=== PATIENT | male | born 1945 | race Caucasian/White ===

== ENCOUNTER → 2017-10-25 13:06 | Outpatient (CLI) | payer OTHER, SELFPAY | PROVIDERS: PCP Internal Medicine; Visit Provider Internal Medicine | DX: L97.812 Non-pressure chronic ulcer of other part of right lower leg with fat layer exposed (principal) | CPT/HCPCS: 11042 ==

== ENCOUNTER → 2017-11-01 13:29 | Outpatient (CLI) | payer OTHER, SELFPAY | PROVIDERS: PCP Internal Medicine; Visit Provider Internal Medicine | DX: L97.812 Non-pressure chronic ulcer of other part of right lower leg with fat layer exposed (principal) | CPT/HCPCS: 11042 ==

== ENCOUNTER → 2017-11-19 13:37 | Outpatient (CLI) | payer OTHER, SELFPAY ==
--- NOTE | 2017-11-19 | OV.WND_ITS ---
Progress Note Details Patient Name: Inderjit Carl Patient Number: [id number] PatientPatientDate: 11/19/2017 Clinician: Leann Dinero Physician / Corporate Treasurer: Blaine Trent SUBJECTIVE Chief Complaint This information was obtained from the patient Trauma wound to right calf. Allergies NKDA HPI This information was obtained from the patient 11/19/17. Seen by Dr. Trent. The patient reports continued drainage associated with the chronic right lower leg nonpressure ulcer over the past few days however does not report pain or increased swelling in the leg. He's also no longer applying topical gentamicin to the site and has been off of oral antibiotics for over a month. The nurse report some blue/ green drainage on his dressing today. 11/01/17. Seen by Dr. Trent. The patient does not report pain nor increased drainage associated with the chronic right lower leg nonpressure ulcer since his last visit. 10/25/17. Seen by Dr. Trent. The patient does not report pain nor increased drainage associated with the chronic right lower leg nonpressure ulcer since his last visit. His is applying topical Neosporin with dressing changes. 10/18/17. Seen by Dr. Trent. The patient does not report pain nor increased drainage associated with the chronic right lower leg nonpressure ulcer since his last visit. 10/11/17. Seen by Dr. Trent. The patient does not report pain nor increased drainage associated with the chronic right lower leg nonpressure ulcer since his last visit. 10/04/17. Seen by Dr. Trent. The patient does not report pain nor increased drainage associated with the chronic right lower leg nonpressure ulcer since his last visit. 09/27/17. Seen by Dr. Trent. The patient does not report pain nor increased drainage associated with the chronic right lower leg nonpressure ulcer since his last visit. 09/20/17. Seen by Dr. Trent. The patient does not report pain nor increased drainage associated with the chronic right lower leg nonpressure ulcer since his last visit. 09/13/17. Seen by Dr. Trent. The staff report increased drainage which appears blue/green on the dressings today. The patient does not report increased pain however associated with the chronic right lower leg nonpressure ulcers since his last visit. 08/31/17. Seen by MATTEO Kincaid. The patient does not pain or increased drainage from his chronic right lower leg ulcer nonpressure ulcer since his last visit. 08/30/17. Seen by Dr. Trent. The patient does not report pain nor increased drainage associated with the chronic right lower leg nonpressure ulcer since his last visit. 08/23/17. Seen by Dane Lauren PA-C. The patient reports stable drainage from his wound of the right lower leg. 08/16/17. Seen by Dane Lauren PA-C. The patient does not report difficulties with his DEMARCO dressing or increased pain from his right lower leg ulcer. 08/09/17. Seen by Dane Lauren PA-C. The patient reports no difficulties with his DEMARCO dressing and drainage from his ulcer is decreased since he began taking Bactrim. 08/02/17. Seen by Dane Lauren PA-C. The patient reports he continues on Bactrim for his ulcer infection of the right lower leg. His wound culture resulted with no growth. Drainage from the ulcer is reportedly decreased. The patient expresses concern over the cost of twice weekly visits. 07/31/17. Seen by Dane Lauren PA-C. The patient comes in today as his (a retired RN) was concerned that his ulcer had deteriorated when she changed his dressing today. He reports no increase in drainage but an increase in pain from the ulcer. He continues on Bactrim for his ulcer infection and NPWT is on hold. 07/26/17. Seen by Dr. Trent. The patient does not report pain nor increased drainage associated with the chronic right lower leg nonpressure ulcer since his last visit. His NPWT has been held and he continues on Bactrim for the recent Stenotrophomonas positive wound culture. 07/23/17. Seen by Dane Lauren PA-C. The patient reports no increase in drainage from his right lower leg ulcer. His culture grew S. Maltophilia sensitive to Bactrim. 07/19/17. Seen by Dane Lauren PA-C. The patient reports increased drainage from his right lower leg ulcer since his last evaluation and denies fever or chills. 07/12/17. Seen by Dane Lauren PA-C. The patient reports no increase in pain or drainage from his right lower leg ulcer since his last evaluation. 07/09/17. Seen by Dr. Trent. The patient does not report pain nor increased drainage associated with the chronic right lower leg nonpressure ulcers since his last visit. He is tolerating negative pressure wound therapy without difficulty completed his course of Bactrim that was treated for chronic wound infection last night. 07/05/17. Seen by Dane Lauren PA-C. The patient reports his ulcer continues to be mostly painless and he continues taking his Bactrim for his ulcer infection. 07/02/17. Seen by Dr. Trent. The patient does not report pain associated with the chronic right lower leg nonpressure ulcer since his last visit and he's tolerating NPWT without difficulty. His wound culture from the last visit grew Stenotrophomonas resistant to levofloxacin which he's now taking however he does not report fevers or feeling unwell. 06/28/17. Seen by Dr. Trent. The patient does not report pain associated with the chronic right lower leg nonpressure ulcer however the staff report significant drainage and the wound VAC canister. He continues on levofloxacin for refractory cellulitis associated with the ulcer and does not report adverse side effects, fevers, feeling unwell. 06/25/17. Seen by Dr. Trent. The patient does not report significant pain and states the drainage associated with the right posterior lower leg ulcer continues to decrease. 06/21/17. Seen by Dr. Trent. The patient does not report significant pain and states the drainage associated with the right posterior lower leg ulcer has decreased considerably. 06/18/17. Seen by Dr. Trent. The patient feels the right lower leg swelling and drainage has decreased considerably since he started taking levofloxacin and was changed from ampicillin to Augmentin on Sunday. These changes were made due to progressive cellulitis associated with the chronic right lower leg non-pressure ulcer. Of note, his wound culture from Sunday grew Enterbacter resistant to Augmentin, and as such ampicillin, however sensitive to levofloxacin. He does not report pain in the leg, fevers, or feeling unwell in general. 06/15/17. Seen by Dr. Trent. The patient reports some increased swelling associated with her right lower leg nonpressure ulcer over the past 24 hours. He had a SNAP negative pressure dressing placed 2 days ago which subsequently leaked and was replaced in clinic yesterday. He is not report fevers or feeling unwell but does state that there is some discomfort in the leg. He is on ampicillin that is treating the recent enterococcus positive wound culture. 06/13/17. Seen by Dr. Trent. The patient does not report pain nor increased drainage associated with the chronic right lower leg nonpressure ulcer since his last visit. He continues on ampicillin for the recent positive Enterococcus wound culture and does not report adverse side effects, fevers, or feeling unwell in general. 06/07/17. Seen by Dr. Trent. The patient does not report pain nor increased drainage associated with the chronic right lower leg nonpressure ulcer since his last visit. His recent wound culture grew enterococcus and Dr. Garcia, surgeon, placed him on amoxicillin yesterday. The patient does not report adverse side effects or fevers. 05/31/17. Seen by Dr. Trent. The patient was seen by Dr. Garcia yesterday and underwent sharp debridement of the right lower leg nonpressure ulcer resolved from an infected hematoma. He's not report significant pain but does have at least moderate drainage associated with the site. He is now off of antibiotics and does not report any other acute issues. 05/21/17. Seen by Dr. Trent. The patient does not report increased pain associated with the right posterior lower leg hematoma and he had the drain that was placed during surgical evacuation removed last Sunday. He does report increased drainage however from the drain site but no fevers and he is not currently on antibiotics. Of note, the nurse is concerned about increased swelling and warmth of the calf as well as a new area of possible soft tissue necrosis at the distal posterior lower leg. 05/14/17. Seen by Dr. Trent. The patient underwent evacuation of the large right posterior lower leg hematoma by Dr. Garcia on Sunday. He has a drain in place and states that the drainage has decreased to less than 20 mL in the last 24 hours. The intraoperative wound culture also was unremarkable and the patient states that the pain in general is much improved. 05/10/17. Seen by Dr. Trent. The patient was seen by Dr. Garcia yesterday and he is scheduled for incision and drainage of the large right posterior lower leg hematoma. He does not report significant drainage or pain associated with the hematoma nor fever or feeling unwell in general since his last visit and he is now off of antibiotics. 05/01/17. Seen by Dane Lauren PA-C. The patient reports his right lower leg swelling and pain have been decreasing. He has not yet been called by [facility] regarding his right leg hematoma. 04/26/17. Seen by Dr. Trent. The patient feels the posterior right lower leg swelling and pain have improved over the past week. His wound culture grew a coag negative staph species without sensitivities being reported and he has been on Bactrim without reporting adverse side effects since last visit. 04/19/17. Seen by Dr. Trent. The patient returns to our clinic with a chronic nonpressure ulcer over the posterior aspect of the right lower leg. He reportedly hit the lower leg on a wall at home about 3 weeks ago experienced some considerable swelling and pain. He takes a full dose aspirin and appears may have experienced hematoma at the base of the calf. The area subsequently became red and warm and his been started on antibiotics by his primary care provider and a wound culture was supposedly performed yesterday. 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 11/04/[address] Trent. The patient does not report significant drainage from the chronic right lower leg venous ulcer and he continues to tolerate his compression wraps without difficulty. 10/28/[address] Trent. The patient does not report any issues regarding his compression wraps that are treating his bilateral lower extremity chronic venous hypertension and associated venous ulcers. 10/21/[address] Trent. The patient does not report pain or significant drainage associated with his chronic bilateral lower leg venous ulcers. He also feels the compression wraps that are treating chronic venous hypertension were effective at reducing his bilateral leg edema. 10/14/[address] Trent. The patient does not report significant drainage or pain associated with his chronic bilateral lower leg venous ulcers. 10/04/15 Seen by Dane Lauren PA-C. The patient presents with a new wound today, which is in the area of his hemosiderin staining and began once he bumped his leg on a piece of furniture. His chronic venous ulcers have demonstrated stable drainage since his last evaluation. 09/23/[address] Trent. The patient continues to report modest blue/green drainage from the left lateral venous ulcers along with some intermittent burning pain. He's wearing compression stockings as recommended. 09/02/[address] Trent. The patient reports minimal drainage from his bilateral venous lower leg ulcers and he does not report pain associated with the ulcers today. His wound culture from the last visit grew coag negative Staph and he's currently not on oral antibiotics. 08/27/[address] Trent. The patient reports some mild intermittent pain associated with the left posterior venous ulcer and the staff note recurrence of bright green/ yellow drainage on the left lower leg venous ulcer dressings. The patient's not on antibiotics and he does not report fevers or feeling unwell in general. 08/20/[address] Trent. The patient continues to report some pain and moderate bright yellow drainage associated with the chronic left lower leg venous ulcers however his right lower leg venous ulcer is asymptomatic. 08/13/[address] Trent. The staff feel there's some increased drainage from the left lower leg venous ulcers and the patient reports some continued mild discomfort at the left posterior ulcer site. He continues to apply gentamicin ointment to the ulcer and apply compression wraps to both lower legs at home. He does not report fever or feeling unwell. 08/04/[address] Trent. The patient reports only minimal drainage associated with the bilateral lower leg venous ulcers and he's been off of IV cefepime for over one week. He also feels the pain associated with the ulcers has nearly resolved. Of note, his blood pressure in clinic today is 197/112 and he states he has significant white coat syndrome. He 's asymptomatic and states it BP is within normal limits while checking it regularly at home. 07/28/[address] Trent. The patient reports a significant decrease in pain and drainage associated with his chronic bilateral lower leg venous ulcers since completing his course of IV cefepime for resistant Pseudomonas infection of the ulcers. 07/21/[address] Trent. The patient feels the drainage from his bilateral lower leg venous ulcers has decreased considerably since starting on IV cefepime for recurrent, resistant Pseudomonas positive cultures. The associated pain has decreased also and he's wearing compression stockings for chronic venous hypertension without reporting any problems. 07/14/[address] Trent. The patient's new to our clinic and presents with chronic bilateral lower extremity ulcers presumed to be of venous origin. They first appeared in September of 2014 and have progressed while being complicated by infection, most notably very resistant Pseudomonas cultured within the past 2 weeks along with Enterococcus. He's been treated with ciprofloxacin within the past month however the Pseudomonas is now resistant to fluoroquinolones as well as all other oral antibiotics. He reports intermittent pain at the ulcer sites along with considerable drainage but does not report fever or feeling unwell. His legs have been wrapped as well to manage the edema. He does no report rest pain or claudication and does not report a history of diabetes. Past Medical History This information was obtained from the patient Patient has a medical history of: ACS (2008; s/p MARY x1 ) Spinal stenosis (2008) HTN Shingles (2014) High cholesterol Osteoarthritis Chronic venous hypertension (bilateral, w/ ulcer and inflammation; complicated by resistant Pseudomonas and Enterococcus) PAD Complaints and Symptoms This information was obtained from the patient Patient complains of: General Notes: I have reviewed and concur with the Review of Systems and Past Family Social History documents completed by the clinician, I have reviewed and concur with the Wound Assessment document completed by the clinician Cardiovascular (Central/Peripheral): Lower extremity (leg) swelling Ear/Nose/Mouth/Throat: Hearing Loss / Aid Hematologic/Lymphatic: Bleeding Tendency Integumentary (Hair/Skin/Nails): Open Sore, Prone to Skin Tears Musculoskeletal: Assistive Devices Prior Wound History: Drainage, Erythema Patient denies complaints or symptoms related to: Cardiovascular (Central): Irregular heart beat, Orthopnea Cardiovascular (Central/Peripheral): Intermittent Claudication, Lower extremity (leg) resting pain Constitutional Symptoms (General Health): Chills, Fever, Marked Weight Change Gastrointestinal (GI): Nausea / Vomiting, Stomach/abdominal pain Hematologic/Lymphatic: Bleeding / Clotting Disorders Musculoskeletal: Muscle Weakness Neurological: Loss of Protective Sensation Prior Wound History: Bleeding, Malodor, Pain Psychiatric: Memory Loss Respiratory: Oxygen Use, Shortness of Breath OBJECTIVE Constitutional BP elevated; Afebrile; Alert and in no distress. Well developed. Alert. Clean appearing.. Height/Length: 70 in (177.8 cm), Weight: 200.6 lbs (91.18 kgs), BMI: 28.8, Temperature: 98.1 ?F (36.72 ?C), Pulse: 82 bpm, Respiratory Rate: 18 breaths/min, Blood Pressure: 161/97 mmHg, Pulse Oximetry: 97 %. Ears, Nose, Mouth, and Throat: Uses hearing aids. Respiratory: No respiratory distress. Even respirations and without use of accessory muscles.. Cardiovascular: 1+ right lower extremity edema. Integumentary (Hair, Skin) No periwound erythema, warmth, or significant drainage. No periwound rashes appreciated or noted otherwise.. Refer to appropriate clinician wound documentation for this visit; right lower leg ulcer extends to subcut with base partially covered with pink granulation, remainder fibrin and slough; blue/green drainage overlying ulcer and surrounding area. Wound #7 Right, Posterior Calf is an acute Full Thickness Trauma Wound and has received a status of Not Healed. Subsequent wound encounter measurements are 0.2cm length x 0.1cm width x 0.1cm depth, with an area of 0.02 sq cm and a volume of 0.002 cubic cm. Hypergranulation was noted. No tunneling has been noted. No sinus tract has been noted. No undermining has been noted. There is a scant amount of serous drainage noted which has no odor. The patient reports a wound pain of level 0/10. The wound margin is attached. Wound bed has Yes epithelialization, No eschar, Yes slough, Yes bright red, firm granulation. The periwound skin moisture is normal. The periwound skin color is normal. The periwound skin exhibited: Edema. The periwound skin did not exhibit: Brawny Induration, Excoriation, Induration, Callus, Crepitus, Fluctuance, Friable, Rash. The temperature of the periwound skin is WNL. Periwound skin does not exhibit signs or symptoms of infection. Local Pulse is Doppler. Neurological: Cranial nerves grossly intact with symmetric function normal by informal observation.. ASSESSMENT Active Problems ICD-10 (Encounter Diagnosis) L97.812 - Non-pressure chronic ulcer of other part of right lower leg with fat layer exposed (Encounter Diagnosis) L08.9 - Local infection of the skin and subcutaneous tissue, unspecified PROCEDURES Wound #7 Wound #7 (Trauma Wound) is located on the right, posterior calf. A skin/ subcutaneous tissue level surgical debridement with a total area debrided of 0.04 sq cm was performed by Blaine Trent MD. Subcutaneous was removed along with devitalized tissue: exudate and slough. The following instrument(s) were used: curette. Pain control was achieved using 4% Lido. A time out was conducted prior to the start of the procedure. A minimal amount of bleeding was controlled with pressure. The procedure was tolerated well with a pain level of 0 throughout and a pain level of 0 following the procedure. Post Debridement Measurements: 0.2cm length x 0.2cm width x 0.1cm depth; with an area of 0.04 sq cm and a volume of 0.004 cubic cm; PLAN Wound Orders: Wound #7 Right, Posterior Calf Anesthetic Topical Xylocaine to wound bed. - In clinic only. Cleanser Cleanse Wound: - Normal saline and gauze. May Shower. - Protect wounds in shower with cast protector or plastic bag. Topical Treatments Antibiotic/Antimicrobial Ointment/Cream. - Gentamicin to wound bed daily. Dressings Primary dressing: - Mepilex non-bordered foam. Cover and secure with: - Conform and tape. Change Dressing: - Daily. 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 Follow-Up Appointments Return Appointment: - - One week. Other information: If you develop fever, chills, increased pain, drainage, redness or swelling please call our office. If after hours, respond to the ER. Should you experience any significant changes in your wound(s) or have any questions regarding your home care instructions please contact the wound center @ [phone]. If after hours, contact your primary care physician or go to the hospital emergency room. Scribing Attestation I attest, as the nurse, that I scribed these orders for the physician. Laboratory: Bacteria identified in Wound by Culture - #7 Left calf I've reviewed the clinician's documentation and agree with the evaluation and plan as written. In addition, the patient's ulcer demonstrates evidence of non-viable devitalized tissue which will continue to benefit from sharp debridement to help promote granulation and expedite healing. Also, due to the patient's history of recurrent and refractory infections associated with this ulcer I've started treating with topical gentamicin again and will consider adding and oral antibiotic pending the culture results. Electronic Signature(s) Signed By: Date: Blaine Trent MD 11/20/2017 10:10:58 Blaine Trent MD 11/20/2017 10:10:58 Entered By: Blaine Trent on 11/20/2017 09:25:09
== END ==
PROVIDERS: PCP Internal Medicine; Visit Provider Internal Medicine
DX: L97.812 Non-pressure chronic ulcer of other part of right lower leg with fat layer exposed (principal); L08.9 Local infection of the skin and subcutaneous tissue, unspecified
CPT/HCPCS: 11042; 87070; 87075; 87205

== ENCOUNTER → 2017-11-26 13:22 | Outpatient (CLI) | payer OTHER, SELFPAY | PROVIDERS: PCP Internal Medicine; Visit Provider Internal Medicine | DX: L97.812 Non-pressure chronic ulcer of other part of right lower leg with fat layer exposed (principal); L92.9 Granulomatous disorder of the skin and subcutaneous tissue, unspecified | CPT/HCPCS: 17250 ==

== ENCOUNTER → 2019-04-18 11:43 | Outpatient (CLI) | payer OTHER, SELFPAY ==
--- NOTE | 2019-04-18 | DI.RAD.S_ITS ---
PROCEDURE: XR KNEE LT 3V INDICATIONS: ACUTE PAIN OF LEFT KNEE TECHNIQUE: 3 views of the knee were acquired. COMPARISON: None. FINDINGS: Bones: No fractures or dislocations. No suspicious bony lesions. Medial knee hemiarthroplasty is present. Hardware is intact without hardware fracture or periprosthetic loosening. Periventricular osteophytes are noted. Soft tissues: Mild joint effusion. No suspicious soft tissue calcifications. IMPRESSION: Degenerative changes and stable appearance of arthroplasty as above. Dictated by: Sue Mark M.D. on 04/18/2019 at 16:16 Approved by: Sue Mark M.D. on 04/18/2019 at 16:17
== END ==
PROVIDERS: PCP Internal Medicine; Visit Provider Internal Medicine
DX: M25.562 Pain in left knee (principal); Z96.652 Presence of left artificial knee joint
CPT/HCPCS: 73562

== ENCOUNTER 2023-05-30 13:48 | Emergency (ER) | payer MEDICARE, SELFPAY ==
[2023-05-30 13:56] VITALS: BP 154/84; PULSE 82; RESP 16; TEMP 36.4; O2SAT 96; BMI 28.8
--- NOTE | 2023-05-30 14:18 | ED.WOUNDLAC ---
HPI - Wound/Laceration <Anju Johnson PA-C - Last Filed: 05/30/23 15:29> General Chief Complaint: Wound/Laceration Stated Complaint: rt calf wound Time Seen by Provider: 05/30/23 14:05 Source: patient Mode of arrival: Ambulatory History of Present Illness HPI narrative: 77 yo M with history of spinal stenosis and chronic venous stasis changes presents with concern for worsening leg wound on his right calf. 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 This past weekend about 4 days ago his noticed there was increased redness and swelling around the wound edges especially near the top of the wound and she is concerned that it is getting infected. Patient came in today to have it further evaluated, wound culture and possibly oral antibiotics. He states he has previously done wound care for other problems on his legs but has not had wound care for this particular wound. He does have a wound care provider he would see for this though. Denies any fevers, chills, nausea, vomiting, change in appetite dizziness lightheadedness or any other symptoms and has otherwise been in his usual state of health. Related Data Home Medications Medication Instructions Recorded Confirmed aspirin 325 mg tablet,delayed 325 mg PO QDAY ##0 05/10/17 release famotidine 20 mg tablet 20 mg PO BID ##0 05/10/17 losartan 50 mg tablet 50 mg PO QDAY ##0 05/10/17 metoprolol succinate 50 mg 50 mg PO BID ##0 05/10/17 tablet,extended release 24 hr naproxen sodium 220 mg capsule 440 mg PO QDAY ##0 05/10/17 nitroglycerin 0.4 mg sublingual 0.4 mg sublingual PRN PRN ##0 05/10/17 tablet (Nitrostat) trazodone 50 mg tablet 50 mg PO HS ##0 05/10/17 vardenafil 20 mg tablet (Levitra) 20 mg PO PRN PRN ##0 05/10/17 [MAGNESIUM MALATE] 833 mg PO BID ##0 05/11/17 [SAW PALMETO] 320 mg PO ##0 05/11/17 ascorbic acid (vitamin C) 500 mg 1,000 mg PO QDAY ##0 05/11/17 tablet beta carotene 10,000 unit capsule 10,000 unit PO ##0 05/11/17 calcium citrate 315 mg-vitamin D3 1 tab PO ##0 05/11/17 5 mcg (200 unit) tablet cholecalciferol (vitamin D3) 125 5,000 unit PO ##0 05/11/17 mcg (5,000 unit) capsule coenzyme Q10 100 mg capsule (Co 300 mg PO ##0 05/11/17 Q-10) omega-3 acid ethyl esters 1 gram 1,200 mg PO BID ##0 05/11/17 capsule (Lovaza) vit A-vit X-mglw-wmkkoxiw 15 mg 1 mg PO ##0 05/11/17 lozenges (Zinc with Vitamins A and C) vitamin B complex (B 1 tab PO QDAY ##0 05/11/17 Complex-Vitamin B12 tablet) vitamin E acetate 134 mg (200 200 iu PO QDAY ##0 05/11/17 unit) capsule Previous Rx's Medication Instructions Recorded amoxicillin 875 mg-potassium 1 tab PO Q12H infected venous 05/30/23 clavulanate 125 mg tablet stasis ulcer 10 days #20 tabs Allergies Allergy/AdvReac Type Severity Reaction Status Date / Time No Known Drug Allergies Allergy Verified 05/30/23 14:01 Review of Systems <Anju Johnson PA-C - Last Filed: 05/30/23 15:29> Review of Systems Narrative: See HPI Patient History <Anju Johnson PA-C - Last Filed: 05/30/23 15:29> Social History Smoking Status: Never smoker Smoking Status: Never smoker alcohol intake frequency: other Substance Use Type: does not use Exam <Anju Johnson PA-C - Last Filed: 05/30/23 15:29> Narrative Exam Narrative: GENERAL: [77] year old patient appears stated age. Well-developed patient, in mild distress; ambulates with walker. HEAD: Atraumatic. Normocephalic. EYES: Pupils equal round and reactive. Extraocular motions intact. No scleral icterus. No injection or drainage. ENT: Nose without bleeding, purulent drainage. Throat without erythema, tonsillar hypertrophy or exudate. Airway patent. NECK: Trachea midline. Non tender CARDIOVASCULAR: Regular rate and rhythm without murmurs, gallops, or rubs. RESPIRATORY: Clear to auscultation. Breath sounds equal bilaterally. No wheezes, rales, or rhonchi. GASTROINTESTINAL: Abdomen protuberant nondistended. EXTREMITIES: Bilateral lower extremities below the knee and above the ankle have dressings in place and chronic venous stasis discoloration and erythema. The right calf has a wound approximately 10 cm vertically x 4 cm horizontally, wound is full-thickness edges of the wound are somewhat swollen and more erythematous. No apparent muscle involvement or deeper tissue involvement. No edema or joint tenderness. Extremely difficult to palpate dorsalis pedis and posterior tibialis. This is baseline per patient states usually requires doppler NEURO: AOx3. SKIN: No rash or erythema of visible areas Initial Vital Signs Initial Vital Signs: Vital Signs Temperature 97.6 F 05/30/23 13:56 Pulse Rate 82 05/30/23 13:56 Respiratory Rate 16 05/30/23 13:56 Blood Pressure 154/84 H 05/30/23 13:56 Pulse Oximetry 96 05/30/23 13:56 Oxygen Delivery Method Room Air 05/30/23 13:56 <Bacilio Olson DO - Last Filed: 05/30/23 16:20> Initial Vital Signs Initial Vital Signs: Vital Signs Temperature 97.6 F 05/30/23 13:56 Pulse Rate 82 05/30/23 13:56 Respiratory Rate 16 05/30/23 13:56 Blood Pressure 154/84 H 05/30/23 13:56 Pulse Oximetry 96 05/30/23 13:56 Oxygen Delivery Method Room Air 05/30/23 13:56 Course <Anju Johnson PA-C - Last Filed: 05/30/23 15:29> Orders Ordered: ED Orders 05/30/23 14:21 Wound Culture and Gram Stain Stat Discontinued Medications Amoxicillin/Clavulanate Potassium (Amoxicillin/Clav 875/125 Mg) 1 tab PO NOW ONE Stop: 05/30/23 14:40 Last Admin: 05/30/23 14:52 Dose: 1 tab Documented By: AMV Vital Signs Vital signs: Vital Signs - 8 hr 05/30/23 13:56 05/30/23 14:50 Temperature 97.6 F Pulse Rate 82 80 Respiratory Rate 16 16 Blood Pressure 154/84 H 143/78 H Pulse Oximetry 96 95 Oxygen Delivery Method Room Air Room Air <Bacilio Olson DO - Last Filed: 05/30/23 16:20> Orders Ordered: ED Orders 05/30/23 14:21 Wound Culture and Gram Stain Stat Discontinued Medications Amoxicillin/Clavulanate Potassium (Amoxicillin/Clav 875/125 Mg) 1 tab PO NOW ONE Stop: 05/30/23 14:40 Last Admin: 05/30/23 14:52 Dose: 1 tab Documented By: AMV Vital Signs Vital signs: Vital Signs - 8 hr 05/30/23 13:56 05/30/23 14:50 Temperature 97.6 F Pulse Rate 82 80 Respiratory Rate 16 16 Blood Pressure 154/84 H 143/78 H Pulse Oximetry 96 95 Oxygen Delivery Method Room Air Room Air MDM - Wound/Laceration <Anju Johnson PA-C - Last Filed: 05/30/23 15:29> Differential Diagnosis Differential diagnosis: Likely abscess and other (chronic venous stasis ulcer, infected) MDM Narrative Medical decision making narrative: This is a generally well-appearing 77-year-old male with a history of chronic venous stasis changes to his lower extremities who presents with concern for possible infection of a chronic right leg/calf wound. 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 He is advised to follow up closely with wound care provider as given the size of this wound it is chronicity and recent worsening it would be very advisable to have this managed by wound care for the time being. Patient has not had any symptoms suggesting a severe or generalized infection, his vitals today are unremarkable. I have low concern for sepsis and labs are not obtained other than wound culture. Return precautions provided, follow-up plan discussed, all questions answered. 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 [1 ] New medication prescriptions sent to your pharmacy: [Augmentin] [ ] New medication written as a paper prescription [ ] No new medications given *Please follow up with your primary care provider in 2-3 days, call for an appointment. Let them know you were seen in the Emergency Department and that we ask that you be seen in follow up. We will electronically transmit a record of today's note if your PCP is in our system. Based on your recently worsening of your chronic wound and exam today we did obtain a wound culture which will take 24-48 hours to result he should receive a call regarding this. I am placing you on Augmentin. We gave you your 1st dose of this today in the emergency department. This should be taken twice a day or every 12 hours it is okay to take your 2nd dose tonight before bed even if it has not been quite 12 hours. We did Re bandage your wound today after examination and would encourage you and your to continue with your regular bandaging practices as you have been doing a good job at home but I would like you to see a clinical reimbursement specialist as we discussed today as soon as possible for further evaluation of your wound and possibly ongoing care for the time being. If you develop new or concerning symptoms including fevers chills nausea vomiting increasing heat swelling pain or redness around your wound or any other symptoms of concern please make sure you seek re-evaluation. *If you do not have a primary care provider please contact the [facility] Resource line at [phone]. They will ask some questions about your medical history and help get you set up with a doctor in the community. *Return to Emergency Department if you should have any new, worsening or concerning symptoms, such as [fever greater than 101 F, shaking chills, worsening pain, persistent vomiting or other bothersome symptoms] Prescriptions: New amoxicillin-pot clavulanate 875-125 mg tablet 1 tab PO Q12H 10 Days Qty: 20 0RF No Action losartan 50 MG tablet 50 mg PO QDAY Qty: 0 aspirin 325 MG tablet,delayed release (DR/EC) 325 mg PO QDAY Qty: 0 metoprolol succinate 50 MG tablet extended release 24 hr 50 mg PO BID Qty: 0 vardenafil [Levitra] 20 MG tablet 20 mg PO PRN PRNQty: 0 trazodone 50 MG tablet 50 mg PO HS Qty: 0 nitroglycerin [Nitrostat] 0.4 MG tablet, sublingual 0.4 mg Sublingual PRN PRNQty: 0 famotidine 20 MG tablet 20 mg PO BID Qty: 0 naproxen sodium 220 MG capsule 440 mg PO QDAY Qty: 0 beta carotene 10,000 UNIT capsule 10,000 unit PO Qty: 0 ascorbic acid (vitamin C) 500 MG tablet 1,000 mg PO QDAY Qty: 0 vitamin B complex [B Complex-Vitamin B12] 1 EACH tablet 1 tab PO QDAY Qty: 0 calcium citrate-vitamin D3 315 MG/200 IU tablet 1 tab PO Qty: 0 cholecalciferol (vitamin D3) 5,000 UNIT capsule 5,000 unit PO Qty: 0 coenzyme Q10 [Co Q-10] 100 MG capsule 300 mg PO Qty: 0 vitamin E acetate 200 UNIT capsule 200 iu PO QDAY Qty: 0 [MAGNESIUM MALATE] 833 mg PO BID Qty: 0 [SAW PALMETO] 320 mg PO Qty: 0 vit A-vit [id number] [Zinc with Vitamins A and C] 15 MG lozenge 1 mg PO Qty: 0 omega-3 acid ethyl esters [Lovaza] 1 GM capsule 1,200 mg PO BID Qty: 0 Referrals: Blaine Trent MD [Physician] - Miscellaneous,MD Mariann [Primary Care Provider] - Stand Alone Forms: Patient Portal/API ED Sign-out <Bacilio Olson, DO - Last Filed: 05/30/23 16:20> Cosign ED Attending Cosignature Attestation: Dr Olson Co-Sign Statement: I was available for consultation during this patient's emergency department visit. This chart is signed by myself for administrative purposes only. I did not have direct contact with this patient during this visit. They were seen independently by the APC.
[2023-05-30 14:50] VITALS: BP 143/78; PULSE 80; RESP 16; O2SAT 95
[2023-05-30] MEDS: AMOXICILLIN/CLAV 875/125 MG 1 TAB PO (14:52)
== END 2023-05-30 14:56 | disposition home or self-care (01) ==
PROVIDERS: Emergency Provider Student in an Organized Health Care Education/Training Program
DX: I83.012 Varicose veins of right lower extremity with ulcer of calf (principal); L98.492 Non-pressure chronic ulcer of skin of other sites with fat layer exposed; I83.009 Varicose veins of unspecified lower extremity with ulcer of unspecified site; T14.8XXA Other injury of unspecified body region, initial encounter
CPT/HCPCS: 87070; 87077; 87186; 87205; 99283

== ENCOUNTER → 2023-06-14 13:04 | Outpatient (CLI) | payer MEDICARE, SELFPAY | LOC: WC 13:07 | PROVIDERS: Referring Provider Internal Medicine; Visit Provider Surgery | DX: I87.2 Venous insufficiency (chronic) (peripheral) (principal); L97.812 Non-pressure chronic ulcer of other part of right lower leg with fat layer exposed; R60.0 Localized edema; L53.9 Erythematous condition, unspecified; I25.10 Atherosclerotic heart disease of native coronary artery without angina pectoris; I10 Essential (primary) hypertension; L30.9 Dermatitis, unspecified | CPT/HCPCS: 11042; 11045; 99204; 99213 ==

== ENCOUNTER → 2023-06-18 11:29 | Outpatient (CLI) | payer MEDICARE, SELFPAY | LOC: WC 11:30 | PROVIDERS: Referring Provider Internal Medicine; Visit Provider Surgery | DX: L97.812 Non-pressure chronic ulcer of other part of right lower leg with fat layer exposed (principal); I87.2 Venous insufficiency (chronic) (peripheral); R60.0 Localized edema; L53.9 Erythematous condition, unspecified; R21 Rash and other nonspecific skin eruption | CPT/HCPCS: 29581 ==

== ENCOUNTER → 2023-06-21 13:53 | Outpatient (CLI) | payer MEDICARE, SELFPAY | LOC: WC 13:54 | PROVIDERS: Referring Provider Internal Medicine; Visit Provider Surgery | DX: L97.812 Non-pressure chronic ulcer of other part of right lower leg with fat layer exposed (principal); I87.2 Venous insufficiency (chronic) (peripheral); R60.0 Localized edema; L53.9 Erythematous condition, unspecified; I25.10 Atherosclerotic heart disease of native coronary artery without angina pectoris; I10 Essential (primary) hypertension; Z79.2 Long term (current) use of antibiotics | CPT/HCPCS: 11042; 11045 ==

== ENCOUNTER → 2023-06-28 09:12 | Outpatient (CLI) | payer MEDICARE, SELFPAY | PROVIDERS: Referring Provider Internal Medicine; Visit Provider Physician Assistant | DX: L97.812 Non-pressure chronic ulcer of other part of right lower leg with fat layer exposed (principal); I87.2 Venous insufficiency (chronic) (peripheral); R60.0 Localized edema; L53.9 Erythematous condition, unspecified; L08.89 Other specified local infections of the skin and subcutaneous tissue; Z79.2 Long term (current) use of antibiotics | CPT/HCPCS: 11042; 11045; 99214 ==

== ENCOUNTER → 2023-07-05 12:58 | Outpatient (CLI) | payer MEDICARE, SELFPAY | LOC: WC 13:02 | PROVIDERS: Referring Provider Internal Medicine; Visit Provider Surgery | DX: L97.812 Non-pressure chronic ulcer of other part of right lower leg with fat layer exposed (principal); I87.2 Venous insufficiency (chronic) (peripheral); R60.0 Localized edema; L53.9 Erythematous condition, unspecified; I25.10 Atherosclerotic heart disease of native coronary artery without angina pectoris; I10 Essential (primary) hypertension | CPT/HCPCS: 11042; 11045 ==

== ENCOUNTER → 2023-07-12 12:54 | Outpatient (CLI) | payer MEDICARE, SELFPAY | LOC: WC 12:55 | PROVIDERS: Referring Provider Internal Medicine; Visit Provider Surgery | DX: L97.812 Non-pressure chronic ulcer of other part of right lower leg with fat layer exposed (principal); I87.2 Venous insufficiency (chronic) (peripheral); R60.0 Localized edema; L53.9 Erythematous condition, unspecified; I10 Essential (primary) hypertension; I25.10 Atherosclerotic heart disease of native coronary artery without angina pectoris | CPT/HCPCS: 11042; 11045; 87070; 87075; 87077; 87186; 87205; 99213 ==

== ENCOUNTER → 2023-07-16 14:32 | Outpatient (CLI) | payer MEDICARE, SELFPAY | LOC: WC 14:33 | PROVIDERS: Referring Provider Internal Medicine; Visit Provider Surgery | DX: L97.812 Non-pressure chronic ulcer of other part of right lower leg with fat layer exposed (principal); I87.2 Venous insufficiency (chronic) (peripheral); R60.0 Localized edema; L53.9 Erythematous condition, unspecified; R21 Rash and other nonspecific skin eruption; L08.89 Other specified local infections of the skin and subcutaneous tissue | CPT/HCPCS: 29581 ==

== ENCOUNTER → 2023-07-19 14:55 | Outpatient (CLI) | payer MEDICARE, SELFPAY ==
--- NOTE | 2023-07-19 | OV.WND_ITS ---
Progress Note Details Patient Name: Inderjit Carl Patient Number: [id number] Clinician: Kenna Abbasi Patient Date of : 1945 Physician / Technical System Analyst: Daniel Rushing Patient SUBJECTIVE Chief Complaint This information was obtained from the Chart, Patient. wound on leg Allergies No Known Allergies HPI This information was obtained from the Patient. The following HPI elements were documented for the patient's wound: Location: RLE Duration: 08/09/22 Context: venous Associated Signs and Symptoms: none The patient is a 77 year old male with CAD, spinal stenosis, venous insufficiency, and HTN who returns today for follow up of venous ulcer of the RLE that has been present since August 2022. The patient has been using dressing changes with Hydrofera blue, two-layer light compression, and Lotrisone, AandD ointment, and Venelex ointment. He has been supplementing with ensure and tran protein drinks. Hemoglobin A1c is 5. Venous ultrasound from April 04, 2023 showed mild reflux within the left deep system. Arterial Doppler from May 10, 2023 showed monophasic deep and waveforms in the right dorsalis pedis artery, biphasic damp and waveforms in the right distal posterior tibial artery, remainder of right lower extremity arterial vasculature revealed multi biphasic wave forms with no hemodynamically significant stenosis. The patient was seen by a vascular surgeon who did not feel that any treatment was necessary. On exam today the periwound skin inflammation and stasis dermatitis appears to be improved. The wound is measuring slightly larger and still has copious drainage that leaked through the wrap. The patient denies having any fever, chills or increased pain from the ulcer. He reports a good appetite and no changes to his overall health. He has been on Cipro for the past 4 days. Culture from last week positive for Pseudomonas aeruginosa. LABS: 07/12/23: Cultures grew Pseudomonas aeruginosa. 05/30/23: Cultures grew Pseudomonas aeruginosa. Medical History This information was obtained from the Patient. Patient has a medical history of: Acute Coronary Syndrome (2008; s/p MARY x1 ) Spinal stenosis (2009) HTN Shingles (2015) Inderjit Carl [id number] 1945 High cholesterol Osteoarthritis Chronic venous hypertension (bilateral, w/ ulcer and inflammation; complicated by resistant Pseudomonas and Enterococcus) PAD NSTEMI (x2) Additional Information Does patient have a history of Cancer? Yes? Complete all questions.: No Surgical History This information was obtained from the Patient. Patient has a surgical history of: Right hip ORIF- (1966) Right hip cup arthroplasty- (1967) Vastectomy - (1978) Right total hip replacement- (1980) Bilateral inguinal hernia repair- (1987) Right hip total replacement revisions- (1991 x2) Left medial unicondylar knee replacement- (2004) Left shoulder partial open rotator cuff repair with graft jacket implant- (2007) Left heart calth with singele vessel disease with 95% occulsion and Xience V stent placed mid LAD- (2008) Surgical removal of hematoma to left calf- Colonoscopy- OBJECTIVE Vitals Height/Length: 71 in (180.34 cm), Weight: 210.5 lbs (95.68 kgs), BMI: 29.4, Temperature: 97.2 ?F (36.22 ?C), Pulse: 80 bpm, Respiratory Rate: 18 breaths/min, Blood Pressure: 121/72 mmHg, Pulse Oximetry: 97 %. Physical Exam Constitutional: Vital signs reviewed and noted. Well developed, well nourished, and in no acute distress. Alert and oriented x3. Respiratory: Even respirations without use of accessory muscles. No intercoastal retractions noted. Even and non labored respiration. Integumentary (Hair, Skin): Stasis dermatitis. See wound assessment. Neurological: Sensation: Symmetric function by informal observation. Psychiatric: Orientation to time, place and person: Normal affect with normal thought pattern. Additional Information The patient's potential to heal is: fair. Wound Assessment(s) Inderjit Carl [id number] 1945 Wound #9 Right, Lateral Leg is a chronic Full Thickness Venous Ulcer and has received a status of Not Healed. Initial wound encounter measurements are 13cm length x 7cm width x 0.3 cm depth, with an area of 91 sq cm and a volume of 27.3 cubic cm. Adipose is exposed. No tunneling has been noted. No sinus tract has been noted. No undermining has been noted. There is a Large amount of serosanguineous drainage noted which has no odor. The patient reports a wound pain of level 0/10. The wound margin is rolled Wound bed has Yes, bright red, pink, firm, granulation, Yes slough, No eschar, No epithelialization. The periwound skin exhibited edema, rash, erythema and hemosiderosis. The periwound skin did not exhibit maceration. The periwound skin was moist. The periwound skin was not friable. The temperature of the periwound skin is WNL. Periwound skin presents with s/s of infection. Confirmation Description and Treatment Plan is: Confirmed Local, Systemic Antibiotics Prescribed. Local Pulse is Doppler. Additional Information Other devitalized tissue present: biofilm Limited to breakdown of skin: No Done outside of center (results scanned in)?: Arterial Ultrasound done 05/10/2023, results received and scanned in. ASSESSMENT Active Problems ICD-10 (Encounter Diagnosis) L97.212 - Non-pressure chronic ulcer of right calf with fat layer exposed (Encounter Diagnosis) I87.2 - Venous insufficiency (chronic) (peripheral) General Notes Venous ulcer right lower extremity with stasis dermatitis with persistent green drainage, and ulcer increased in size though with good granulation, periwound remains improved The following factors have been identified that may affect wound healing: Devitalized tissue Biofilm Venous insufficiency Stasis dermatitis Infection Goals: Remove devitalized tissue Remove and prevent biofilm Reduce swelling Treat infection Wound closure Prevent recurrence Plan: Debridement, switch to dressing changes with Iodoflex with two-layer light compression twice a week. Apply Lotrisone, AandD ointment, and Venelex ointment to periwound skin prior to application of compression. Follow up in 1 week for a recheck. Refer to Dr. Romo for recommendations for antibiotic therapy. PROCEDURES Wound #9 Wound #9 (Venous Ulcer) is located on the right, lateral leg. A skin/subcutaneous tissue level surgical Siddhartha Inderjit Hope [id number] 1945 debridement with a total area debrided of 91 sq cm. was performed by Daniel Rushing MD. Subcutaneous was removed along with devitalized tissue: biofilm, exudate and slough. The following instrument(s) were used: curette. Pain control was achieved using EMLA lidocaine/prilocaine 2.5%/2.5%. A time out was conducted prior to the start of the procedure. A minimal amount of bleeding was controlled with pressure. The procedure was tolerated well with a pain level of 0 throughout and a pain level of 0 following the procedure. Post Debridement Measurements: 13cm length x 7cm width x 0.4cm depth; with an area of 91 sq cm and a volume of 36.4 cubic cm. Additional Information Muscle fascia or bone removed and sent to pathology?: No Wound #9 (Venous Ulcer) is located on the right, lateral leg. A Multilayer Compression procedure was performed for the lower right extremity by Kenna Abbasi RN. A 2 layer Coban wrap was applied. The procedure was tolerated well with a pain level of 0 throughout and a pain level of 0 following the procedure. General Notes 3M Coban 2 Layer Lite compression wrap system (25-30mmHg). PLAN Wound Orders: Wound #9 Right, Lateral Leg Anesthetic Topical Xylocaine to wound bed Hygiene May shower with wound protected, using a cast protector or plastic bag and tape Cleanser Cleanse Wound with normal saline Dressings Primary dressing - Iodoflex Cover and secure with - Mextra superabsorbent dressing, then Coban 2 Layer Lite compression wrap. Change Dressing - Leave in place until next visit. Compression/Edema Control Elevation of leg(s) above the level of the heart when sitting Avoid prolonged standing in one place Multi Layer Wrap - Do not get leg(s) with compression wrap wet. If wraps are too tight call the wound care center or remove if you are unable to reach the center. Please remove wraps for numbness, tingling, pain in legs or color changes in toes and call the clinic the same day. If symptoms do not resolve after removing wraps please go to the ER for evaluation. Local pharmacies carry plastic cast protectors that may be used for protection while showering. Compression Type: - Coban 2 Layer Lite compression wrap system (25-30mmHg). Additional Orders: Topical Treatments Moisturizing lotion to surround skin Other order - Puracyn Plus solution applied to wound bed and allow to soak for 2-3 minutes. Apply prior to each dressing change. Other Instructions: - Continue on Cipro Instructions: - We will refer to Infectious disease Follow-Up Appointments Return Appointment - . Return for Nurse visit - Sunday. Other information: If you develop fever, chills, increased pain, drainage, redness or swelling please call our office. If after hours, respond to the ER. Should you experience any significant changes in your wound(s) or have any questions regarding your home care instructions please contact the wound center @ [phone]. If after hours, contact your primary care physician or go to the hospital emergency room. Inderjit Carl [id number] 1945 Physician Review: Reviewed and evaluated labs. Discussed the Plan of Care @ bedside with - patient Reviewed hospital records. I, as the physician, have reviewed the orders scribed by the center RN's and agree. Scribing Attestation I attest, as the nurse, that I scribed these orders for the physician. Medications Prescribed: Cipro - oral 500 mg 1 tablet twice daily for 5 days starting 07/20/2023 Plan of Care: 01. ENSURE/ESTABLISH OPTIMAL BLOOD FLOW : - Complete lower extremity assessment - Perform non-invasive vascular testing (i.e. REJI) and document findings. Consider repeating when wound healing <40% after 30 days of wound care. - Arterial ultrasound done 05/10/23 at [facility], results received. 02. ASSESS FOR/TREAT INFECTION : - Evaluate for signs and symptoms of infection and document findings. 03. DEBRIDE WEEKLY OR MORE OFTEN PRN : - Evaluate patient in center weekly to assess wound bed and margins for need for debridement. - Debridement by any method to remove devitalized/necrotic tissue to promote healing and prevent further complications. Goal is to stimulate and/or maintain acute phase of wound healing by reducing bacterial burden and devitalized/non-viable tissue. 04. OPTIMIZE GLUCOSE CONTROL and NUTRITION : - Order/review pertinent labs to evaluate renal function, glucose control, and nutritional status. - Complete a nutrition risk assessment. 05. OFFLOADING PLAN : - Reviewed, not applicable 06. OPTIMIZE HOST FACTORS: - Assess and review patient history for wound etiology, co-morbid conditions, medication regime, and smoking history. - Assess lifestyle factors such as smoking, alcohol/drug abuse, eating habits/malnutrition and activity level. 07. DRESSING SELECTION : - Evaluate for dressing-related factors, such as availability, wear time, adaptability and use to better optimize wound healing and patient compliance. - Choose topical treatments and/or dressing based on wound type and appearance, periwound skin condition, wound size and depth, anatomic location, volume of exudate, edema in the lower extremities, and risk or presence of infection. 08. ADVANCED MODALITIES : - Evaluate for appropriateness of Cellular Tissue Product therapy. - Set treatment goals according to patient and/or caregiver???s ability/ compliance. - Re-evaluate plan of care if no evidence of healing (40% in 4 weeks). 09. FALL PREVENTION : - Complete fall assessment. - Inform patient and family of risk of falling and discuss prevention strategies. 10. PAIN MANAGEMENT : - Complete pain assessment - Prepare patient to set reasonable expectations prior to procedure. 11. MEASURABLE GOALS for Wound Healing and/or Hyperbaric Oxygen Therapy : - Decrease Inflammation - Decrease Wound Dimensions Inderjit Carl [id number] 1945 - Implement protocols to promote healing and impede further injury - Reduce edema 12. DURATION/FREQUENCY of Wound Care Visits : - 1x weekly for 30 days Electronic Signature(s) Signed By: Date: Daniel Rushing MD 07/19/2023 15:40:26 (PT) Entered By: Daniel Rushing MD on 07/19/2023 15:33:46 (PT) Inderjit Carl [id number] 1945
== END ==
PROVIDERS: Referring Provider Internal Medicine; Visit Provider Surgery
DX: L97.812 Non-pressure chronic ulcer of other part of right lower leg with fat layer exposed (principal); I87.2 Venous insufficiency (chronic) (peripheral); L08.89 Other specified local infections of the skin and subcutaneous tissue; I25.10 Atherosclerotic heart disease of native coronary artery without angina pectoris; I10 Essential (primary) hypertension; Z79.2 Long term (current) use of antibiotics; R60.0 Localized edema; L53.9 Erythematous condition, unspecified; R21 Rash and other nonspecific skin eruption
CPT/HCPCS: 11042; 11045; 99213

== ENCOUNTER → 2023-07-23 15:03 | Outpatient (CLI) | payer MEDICARE, SELFPAY | PROVIDERS: Referring Provider Internal Medicine; Visit Provider Surgery | DX: I87.2 Venous insufficiency (chronic) (peripheral) (principal); L97.812 Non-pressure chronic ulcer of other part of right lower leg with fat layer exposed; L08.9 Local infection of the skin and subcutaneous tissue, unspecified; R60.0 Localized edema | CPT/HCPCS: 29581 ==

== ENCOUNTER → 2023-07-26 15:11 | Outpatient (CLI) | payer MEDICARE, SELFPAY | LOC: WC 15:11 | PROVIDERS: Referring Provider Internal Medicine; Visit Provider Surgery | DX: L97.812 Non-pressure chronic ulcer of other part of right lower leg with fat layer exposed (principal); I87.2 Venous insufficiency (chronic) (peripheral); R60.0 Localized edema; L53.9 Erythematous condition, unspecified; L98.8 Other specified disorders of the skin and subcutaneous tissue | CPT/HCPCS: 29581 ==

== ENCOUNTER → 2023-07-30 14:58 | Outpatient (CLI) | payer MEDICARE, SELFPAY | LOC: WC 14:58 | PROVIDERS: Visit Provider Surgery | DX: L97.812 Non-pressure chronic ulcer of other part of right lower leg with fat layer exposed (principal); I87.2 Venous insufficiency (chronic) (peripheral); L08.89 Other specified local infections of the skin and subcutaneous tissue; Z79.2 Long term (current) use of antibiotics; R60.0 Localized edema; L53.9 Erythematous condition, unspecified; L98.8 Other specified disorders of the skin and subcutaneous tissue; I25.10 Atherosclerotic heart disease of native coronary artery without angina pectoris; I10 Essential (primary) hypertension | CPT/HCPCS: 11042; 11045 ==

== ENCOUNTER → 2023-08-02 14:55 | Outpatient (CLI) | payer MEDICARE, SELFPAY | LOC: WC 14:55 | PROVIDERS: Referring Provider Internal Medicine; Visit Provider Surgery | DX: L97.812 Non-pressure chronic ulcer of other part of right lower leg with fat layer exposed (principal); I87.2 Venous insufficiency (chronic) (peripheral); R60.0 Localized edema; L53.9 Erythematous condition, unspecified | CPT/HCPCS: 29581 ==

== ENCOUNTER → 2023-08-06 15:02 | Outpatient (CLI) | payer MEDICARE, SELFPAY | LOC: WC 15:03 | PROVIDERS: Visit Provider Surgery | DX: L97.812 Non-pressure chronic ulcer of other part of right lower leg with fat layer exposed (principal); I87.2 Venous insufficiency (chronic) (peripheral); R60.0 Localized edema; L53.9 Erythematous condition, unspecified; R21 Rash and other nonspecific skin eruption; I25.10 Atherosclerotic heart disease of native coronary artery without angina pectoris; I10 Essential (primary) hypertension; B96.5 Pseudomonas (aeruginosa) (mallei) (pseudomallei) as the cause of diseases classified elsewhere; Z79.899 Other long term (current) drug therapy | CPT/HCPCS: 11042; 11045 ==

== ENCOUNTER → 2023-08-09 14:06 | Outpatient (CLI) | payer MEDICARE, SELFPAY | LOC: WC 14:07 | PROVIDERS: Referring Provider Internal Medicine; Visit Provider Surgery | DX: L97.812 Non-pressure chronic ulcer of other part of right lower leg with fat layer exposed (principal); I87.2 Venous insufficiency (chronic) (peripheral); R60.0 Localized edema; R21 Rash and other nonspecific skin eruption; L53.9 Erythematous condition, unspecified; L08.89 Other specified local infections of the skin and subcutaneous tissue | CPT/HCPCS: 29581 ==

== ENCOUNTER → 2023-08-13 11:48 | Outpatient (CLI) | payer MEDICARE, SELFPAY | LOC: WC 11:49 | PROVIDERS: Visit Provider Surgery | DX: L97.812 Non-pressure chronic ulcer of other part of right lower leg with fat layer exposed (principal); I87.2 Venous insufficiency (chronic) (peripheral); R60.0 Localized edema; L53.9 Erythematous condition, unspecified | CPT/HCPCS: 29581 ==

== ENCOUNTER → 2023-08-16 14:04 | Outpatient (CLI) | payer MEDICARE, SELFPAY | LOC: WC 14:04 | PROVIDERS: Referring Provider Internal Medicine; Visit Provider Nurse Practitioner Family | DX: L97.812 Non-pressure chronic ulcer of other part of right lower leg with fat layer exposed (principal); I87.2 Venous insufficiency (chronic) (peripheral); R60.0 Localized edema; L53.9 Erythematous condition, unspecified; L08.89 Other specified local infections of the skin and subcutaneous tissue | CPT/HCPCS: 11042; 11045; 99214 ==

== ENCOUNTER → 2023-08-20 15:32 | Outpatient (CLI) | payer MEDICARE, SELFPAY | LOC: WC 15:33 | PROVIDERS: Referring Provider Internal Medicine; Visit Provider Surgery | DX: I87.2 Venous insufficiency (chronic) (peripheral) (principal); L97.812 Non-pressure chronic ulcer of other part of right lower leg with fat layer exposed; R60.0 Localized edema; L53.9 Erythematous condition, unspecified; R21 Rash and other nonspecific skin eruption; I25.10 Atherosclerotic heart disease of native coronary artery without angina pectoris; I10 Essential (primary) hypertension | CPT/HCPCS: 11042; 11045; 99213 ==

== ENCOUNTER → 2023-08-27 13:21 | Outpatient (CLI) | payer MEDICARE, SELFPAY | PROVIDERS: Referring Provider Internal Medicine; Visit Provider Surgery | DX: L97.812 Non-pressure chronic ulcer of other part of right lower leg with fat layer exposed (principal); I87.2 Venous insufficiency (chronic) (peripheral); R60.0 Localized edema; R21 Rash and other nonspecific skin eruption; I10 Essential (primary) hypertension; I25.10 Atherosclerotic heart disease of native coronary artery without angina pectoris | CPT/HCPCS: 11042; 11045 ==

== ENCOUNTER → 2023-09-03 14:37 | Outpatient (CLI) | payer MEDICARE, SELFPAY | PROVIDERS: Visit Provider Surgery | DX: L97.812 Non-pressure chronic ulcer of other part of right lower leg with fat layer exposed (principal); I87.2 Venous insufficiency (chronic) (peripheral); R60.0 Localized edema; R21 Rash and other nonspecific skin eruption; I25.10 Atherosclerotic heart disease of native coronary artery without angina pectoris; I10 Essential (primary) hypertension | CPT/HCPCS: 11042; 11045 ==

== ENCOUNTER → 2023-09-10 14:44 | Outpatient (CLI) | payer MEDICARE, SELFPAY | LOC: WC 14:50 | PROVIDERS: Visit Provider Surgery | DX: L97.812 Non-pressure chronic ulcer of other part of right lower leg with fat layer exposed (principal); I87.2 Venous insufficiency (chronic) (peripheral); R60.0 Localized edema; I25.10 Atherosclerotic heart disease of native coronary artery without angina pectoris; I10 Essential (primary) hypertension | CPT/HCPCS: 11042; 11045 ==

== ENCOUNTER → 2023-09-17 10:08 | Outpatient (CLI) | payer MEDICARE, SELFPAY | LOC: WC 09-19 11:20 | PROVIDERS: Visit Provider Surgery | DX: L97.812 Non-pressure chronic ulcer of other part of right lower leg with fat layer exposed (principal); I87.2 Venous insufficiency (chronic) (peripheral); R60.0 Localized edema; R21 Rash and other nonspecific skin eruption; I25.10 Atherosclerotic heart disease of native coronary artery without angina pectoris; I10 Essential (primary) hypertension | CPT/HCPCS: 11042; 11045; 99213 ==

== ENCOUNTER → 2023-09-24 13:45 | Outpatient (CLI) | payer MEDICARE, SELFPAY | PROVIDERS: Referring Provider Internal Medicine; Visit Provider Surgery | DX: L97.812 Non-pressure chronic ulcer of other part of right lower leg with fat layer exposed (principal); I87.2 Venous insufficiency (chronic) (peripheral); R60.0 Localized edema; R21 Rash and other nonspecific skin eruption; I25.10 Atherosclerotic heart disease of native coronary artery without angina pectoris; I10 Essential (primary) hypertension | CPT/HCPCS: 11042; 11045 ==

== ENCOUNTER → 2023-10-01 14:39 | Outpatient (CLI) | payer MEDICARE, SELFPAY | LOC: WC 14:40 | PROVIDERS: Visit Provider Surgery | DX: L97.812 Non-pressure chronic ulcer of other part of right lower leg with fat layer exposed (principal); I87.2 Venous insufficiency (chronic) (peripheral); R60.0 Localized edema | CPT/HCPCS: 15271; 15272; Q4101 ==

== ENCOUNTER → 2023-10-08 15:46 | Outpatient (CLI) | payer MEDICARE, SELFPAY | PROVIDERS: Referring Provider Internal Medicine; Visit Provider Surgery | DX: L97.812 Non-pressure chronic ulcer of other part of right lower leg with fat layer exposed (principal); I87.2 Venous insufficiency (chronic) (peripheral); R60.0 Localized edema; R21 Rash and other nonspecific skin eruption; I25.10 Atherosclerotic heart disease of native coronary artery without angina pectoris; I10 Essential (primary) hypertension | CPT/HCPCS: 15271; 15272; Q4101 ==

== ENCOUNTER → 2023-10-15 15:25 | Outpatient (CLI) | payer MEDICARE, SELFPAY | PROVIDERS: Visit Provider Surgery | DX: L97.812 Non-pressure chronic ulcer of other part of right lower leg with fat layer exposed (principal); I87.2 Venous insufficiency (chronic) (peripheral); R60.0 Localized edema; I10 Essential (primary) hypertension; I25.10 Atherosclerotic heart disease of native coronary artery without angina pectoris | CPT/HCPCS: 11042; 99213 ==

== ENCOUNTER → 2023-10-22 14:55 | Outpatient (CLI) | payer MEDICARE, SELFPAY | LOC: WC 14:56 | PROVIDERS: Referring Provider Internal Medicine; Visit Provider Surgery | DX: L97.812 Non-pressure chronic ulcer of other part of right lower leg with fat layer exposed (principal); I87.2 Venous insufficiency (chronic) (peripheral); R60.0 Localized edema; I25.10 Atherosclerotic heart disease of native coronary artery without angina pectoris; I10 Essential (primary) hypertension | CPT/HCPCS: 11042 ==

== ENCOUNTER → 2023-10-30 09:59 | Outpatient (CLI) | payer MEDICARE, SELFPAY | LOC: WC 10:00 | PROVIDERS: Referring Provider Internal Medicine; Visit Provider Surgery | DX: L97.812 Non-pressure chronic ulcer of other part of right lower leg with fat layer exposed (principal); I87.2 Venous insufficiency (chronic) (peripheral); R60.0 Localized edema; I10 Essential (primary) hypertension; I25.10 Atherosclerotic heart disease of native coronary artery without angina pectoris | CPT/HCPCS: 15271; Q4101 ==

== ENCOUNTER → 2023-11-06 13:15 | Outpatient (CLI) | payer MEDICARE, SELFPAY | LOC: WC 13:16 | PROVIDERS: Visit Provider Surgery | DX: L97.812 Non-pressure chronic ulcer of other part of right lower leg with fat layer exposed (principal); I87.2 Venous insufficiency (chronic) (peripheral); R60.0 Localized edema; I10 Essential (primary) hypertension; I25.10 Atherosclerotic heart disease of native coronary artery without angina pectoris | CPT/HCPCS: 15271; 99214; Q4101 ==

== ENCOUNTER → 2023-11-13 13:16 | Outpatient (CLI) | payer MEDICARE, SELFPAY | LOC: WC 13:18 | PROVIDERS: Referring Provider Internal Medicine; Visit Provider Surgery | DX: L97.812 Non-pressure chronic ulcer of other part of right lower leg with fat layer exposed (principal); I87.2 Venous insufficiency (chronic) (peripheral); R60.0 Localized edema; I25.10 Atherosclerotic heart disease of native coronary artery without angina pectoris; I10 Essential (primary) hypertension | CPT/HCPCS: 15271; 99213; Q4101 ==

== ENCOUNTER → 2023-11-20 13:40 | Outpatient (CLI) | payer MEDICARE, SELFPAY | LOC: WC 13:48 | PROVIDERS: Referring Provider Internal Medicine; Visit Provider Surgery | DX: L97.812 Non-pressure chronic ulcer of other part of right lower leg with fat layer exposed (principal); I87.2 Venous insufficiency (chronic) (peripheral); R60.0 Localized edema; I25.10 Atherosclerotic heart disease of native coronary artery without angina pectoris; I10 Essential (primary) hypertension | CPT/HCPCS: 11042 ==

== ENCOUNTER → 2023-11-27 15:00 | Outpatient (CLI) | payer MEDICARE, SELFPAY | LOC: WC 15:01 | PROVIDERS: Referring Provider Internal Medicine; Visit Provider Surgery | DX: L97.812 Non-pressure chronic ulcer of other part of right lower leg with fat layer exposed (principal); I87.2 Venous insufficiency (chronic) (peripheral); R60.0 Localized edema; R21 Rash and other nonspecific skin eruption; I25.10 Atherosclerotic heart disease of native coronary artery without angina pectoris; I10 Essential (primary) hypertension | CPT/HCPCS: 11042; 99213 ==

== ENCOUNTER → 2023-12-04 14:39 | Outpatient (CLI) | payer MEDICARE, SELFPAY | PROVIDERS: Referring Provider Internal Medicine; Visit Provider Surgery | DX: L97.812 Non-pressure chronic ulcer of other part of right lower leg with fat layer exposed (principal); I87.2 Venous insufficiency (chronic) (peripheral); R21 Rash and other nonspecific skin eruption; R60.0 Localized edema; I25.10 Atherosclerotic heart disease of native coronary artery without angina pectoris; I10 Essential (primary) hypertension | CPT/HCPCS: 11042 ==

== ENCOUNTER → 2023-12-12 14:11 | Outpatient (CLI) | payer MEDICARE, SELFPAY | LOC: WC 14:11 | PROVIDERS: Referring Provider Internal Medicine; Visit Provider Surgery | DX: L97.812 Non-pressure chronic ulcer of other part of right lower leg with fat layer exposed (principal); I87.2 Venous insufficiency (chronic) (peripheral); R60.0 Localized edema | CPT/HCPCS: 11042 ==

== ENCOUNTER → 2023-12-19 15:31 | Outpatient (CLI) | payer MEDICARE, SELFPAY | PROVIDERS: Referring Provider Internal Medicine; Visit Provider Surgery | DX: L97.812 Non-pressure chronic ulcer of other part of right lower leg with fat layer exposed (principal); I87.2 Venous insufficiency (chronic) (peripheral); R60.0 Localized edema; R21 Rash and other nonspecific skin eruption; I10 Essential (primary) hypertension; I25.10 Atherosclerotic heart disease of native coronary artery without angina pectoris | CPT/HCPCS: 11042 ==

== ENCOUNTER → 2023-12-26 14:37 | Outpatient (CLI) | payer MEDICARE, SELFPAY | PROVIDERS: Referring Provider Internal Medicine; Visit Provider Surgery | DX: L97.812 Non-pressure chronic ulcer of other part of right lower leg with fat layer exposed (principal); I87.2 Venous insufficiency (chronic) (peripheral); R60.0 Localized edema; R21 Rash and other nonspecific skin eruption; I25.10 Atherosclerotic heart disease of native coronary artery without angina pectoris; I10 Essential (primary) hypertension | CPT/HCPCS: 11042; 99213 ==

== ENCOUNTER → 2024-01-02 14:59 | Outpatient (CLI) | payer MEDICARE, SELFPAY | LOC: WC 14:59 | PROVIDERS: Referring Provider Internal Medicine; Visit Provider Surgery | DX: L97.812 Non-pressure chronic ulcer of other part of right lower leg with fat layer exposed (principal); I87.2 Venous insufficiency (chronic) (peripheral); S81.802A Unspecified open wound, left lower leg, initial encounter; L98.8 Other specified disorders of the skin and subcutaneous tissue; R60.0 Localized edema; R23.3 Spontaneous ecchymoses | CPT/HCPCS: 11042; 99213 ==

== ENCOUNTER → 2024-01-15 13:36 | Outpatient (CLI) | payer MEDICARE, SELFPAY | LOC: WC 13:37 | PROVIDERS: Referring Provider Internal Medicine; Visit Provider Surgery | DX: S81.802D Unspecified open wound, left lower leg, subsequent encounter (principal); I87.2 Venous insufficiency (chronic) (peripheral); R60.0 Localized edema | CPT/HCPCS: 99213 ==

== ENCOUNTER → 2024-01-29 14:26 | Outpatient (CLI) | payer MEDICARE, SELFPAY | LOC: WC 14:26 | PROVIDERS: Visit Provider Surgery | DX: I87.2 Venous insufficiency (chronic) (peripheral) (principal) | CPT/HCPCS: 99211; 99213 ==

== ENCOUNTER → 2024-07-03 13:10 | Outpatient (CLI) | payer MEDICARE, SELFPAY ==
--- NOTE | 2024-07-03 13:12 | DI.RAD.S_ITS ---
PROCEDURE: XR SHOULDER RT MIN 2V INDICATIONS: SHOULDER PAIN TECHNIQUE: Three views of the right shoulder were acquired. COMPARISON: None. FINDINGS: Bones: Humeral head is superiorly subluxed compatible with chronic rotator cuff tear/impingement Acromioclavicular and glenohumeral joints: The acromioclavicular joint is unremarkable. There is mild glenohumeral degeneration. Soft tissues: No soft tissue swelling, calcification or mass. IMPRESSION: Superior head cysts subluxation associated with chronic rotator cuff tear/impingement Mild glenohumeral degeneration Dictated by: Ish Ortega M.D. on 07/04/2024 at 10:50 Approved by: Ish Ortega M.D. on 07/04/2024 at 10:51
--- NOTE | 2024-07-03 13:12 | DI.RAD.S_ITS ---
PROCEDURE: XR SHOULDER LT MIN 2V INDICATIONS: SHOULDER PAIN TECHNIQUE: Three views of the left shoulder were acquired. COMPARISON: None. FINDINGS: Bones: 2 suture anchors are seen in the tuberosity region following rotator cuff repair. The humeral head is superiorly subluxed which could indicate recurrent tear. Acromioclavicular and glenohumeral joints: There is moderate degeneration in both joints. Soft tissues: No soft tissue swelling, calcification or mass. IMPRESSION: Superior humeral head subluxation associated with recurrent rotator cuff tear. Moderate glenohumeral and acromioclavicular degeneration Dictated by: Ish Ortega M.D. on 07/04/2024 at 10:51 Approved by: Ish Ortega M.D. on 07/04/2024 at 10:54
== END ==
LOC: RAD 13:11
PROVIDERS: Referring Provider Family Medicine; Visit Provider Family Medicine
DX: M77.8 Other enthesopathies, not elsewhere classified (principal); M75.102 Unspecified rotator cuff tear or rupture of left shoulder, not specified as traumatic; S43.002A Unspecified subluxation of left shoulder joint, initial encounter; M75.101 Unspecified rotator cuff tear or rupture of right shoulder, not specified as traumatic; S43.001A Unspecified subluxation of right shoulder joint, initial encounter
CPT/HCPCS: 73030

== ENCOUNTER → 2024-08-25 11:52 | Outpatient (CLI) | payer MEDICARE, SELFPAY ==
--- NOTE | 2024-08-25 11:53 | DI.RAD.S_ITS ---
PROCEDURE: XR LUMBAR SPINE MIN 4V INDICATIONS: BACK PAIN TECHNIQUE: 5 views of the lumbar spine were acquired, including bilateral oblique views. COMPARISON: None. FINDINGS: Bones: 5 nonrib-bearing vertebrae are present. Mild scoliosis. Multilevel vertebral body osteophytes. There is retrolisthesis of L2 on L3 measuring 1 cm. There is lower lumbar spine facet joint hypertrophy. No vertebral body compression fractures. No suspicious bony lesions. Right hip arthroplasty. Cerclage wires. There is extensive heterotopic ossification. Moderate left hip DJD. Soft tissues: Overlying bowel gas pattern is normal. No suspicious soft tissue calcifications. Oblique images: No pars defects. IMPRESSION: No compression fracture. Grade 1 retrolisthesis of L2 on L3. Moderate to severe degenerative changes. Dictated by: Luis Maunel Washington M.D. on 08/25/2024 at 11:18 Approved by: Luis Manuel Washington M.D. on 08/25/2024 at 11:22
== END ==
PROVIDERS: Referring Provider Physical Medicine & Rehabilitation; Visit Provider Physical Medicine & Rehabilitation
DX: M16.12 Unilateral primary osteoarthritis, left hip (principal); M43.16 Spondylolisthesis, lumbar region; M47.816 Spondylosis without myelopathy or radiculopathy, lumbar region; M41.9 Scoliosis, unspecified; M54.9 Dorsalgia, unspecified; Z96.641 Presence of right artificial hip joint
CPT/HCPCS: 72110; 99214

== ENCOUNTER 2024-09-02 13:03 | Outpatient (CLI) | payer MEDICARE, SELFPAY ==
[2024-09-02] VITALS (9 sets, daily range): BP systolic 112–175; BP diastolic 69–89; PULSE 74–93; RESP 16–19; TEMP 36.8; O2SAT 96–98
[2024-09-02] MEDS: MIDAZOLAM 2 MG/2 ML VIAL IV (14:03)
[2024-09-02] MEDS: BUPIVACAINE 0.25% (PF) VIAL 2 ML INJ (14:06)
[2024-09-02] MEDS: BETAMETHASONE 30 MG/5 ML MDV 12 MG INJ (14:07)
[2024-09-02] MEDS: DEXAMETHASONE 10 MG/ML VIAL INJ (14:07)
[2024-09-02] MEDS: iopamidoL 15 ML VIAL 3 ML INJ (14:07)
--- NOTE | 2024-09-02 14:17 | P.PCN_ITS ---
Date/Time/Diagnoses Date of procedure: 09/02/24 Time of procedure: 14:17 Pre-procedure diagnosis: 1. HNP WITH RADICULAR FEATURES, 2. MULTILEVEL CENTRAL STENOSIS, Post-procedure diagnosis: same Procedure Notes Procedure: 1. FLUOROSCOPICALLY GUIDED CONTRAST CONTROLLED INTERLAMINAR EPIDURAL STEROID INJECTION -L4/5 Indications: Inderjit is referred by Dr. Willson for treatment of Bilateral Foraminal Stenosis R>L LE symptoms. Physician: River Martinez Total Fluoroscopy time (seconds): 5 Total sedation minutes: 10 Complications: none Procedure in detail & Post-procedure care: FINDINGS Multilevel Central Spinal Stenosis with Nerve Root Compression DESCRIPTION OF PROCEDURE Fluoroscopically guided, contrast-controlled L4/5 translaminar epidural steroid injection. Following review of allergy and review of potential side effects and complications, including, but not necessarily limited to, infection, allergic reaction, local tissue breakdown, temporary as well as permanent nerve injury, paralysis, stroke and possible , the patient indicated that the patient understood and agreed to proceed. An informed consent document was signed by the patient, witnessed by a nurse, and placed in the patient's chart. Additionally, other treatment options including modalities, medications, and physical therapy were reviewed with the patient. After review of previous anaesthesic history and IV conscious sedation the patient was deemed safe to proceed with today?s procedure with IV conscious sedation as ASA class II designation. Safety time-out was performed to confirm patient ID, procedure to be performed and site of procedure. IV sedation was accomplished with a combination of 2mg of Versed was administered by the RN after DO order, titrated to patient comfort during the course of the procedure while the patient remained responsive to all verbal commands In the prone position, following sterile prep and drape of the lumbar region, the L4/5 translaminar space was identified fluoroscopically. The skin was anesthetized via a 25-gauge, 1.5inch needle with 1% lidocaine solution. At this point, a 22-gauge short bevel spinal needle was atraumatically introduced and ad vanced under fluoroscopic guidance into the region of the L4/5 translaminar space. Depth was confirmed on lateral view. Radiological data, including multiple fluoroscopic views of the lumbar spine, reveal a spinal needle at the L4/5 translaminar space. Lateral views then show placement of the needle in the epidural space. Subsequent views show contrast material flowing superiorly and inferiorly in the epidural space. No vascular or intrathecal uptake is observed. At this point, using loss of resistance technique with saline and air, the epidural space was entered. This was confirmed following negative aspiration with injection of approximately 1.5cc of Isovue 200, showing excellent epidural flow without vascular or intrathecal uptake. At this point, 1cc of 1% lidocaine solution combined with 2cc or 10mg of dexamethasone and 6mg betamethasone was injected without incident. The patient tolerated the procedure well without signs or symptoms of complications prior to transfer to the recovery area continued monitoring without incident. The patient was then transferred to the recovery area where they were observed for an appropriate period of time after the injection. The patient reported a VAS score of 6 prior to the procedure and a post- procedure VAS of 0. POST OP INSTRUCTIONS The patient was provided a Pain Log to continue to record their response to the target-specific procedure prior to follow-up visit with their referring physician. Additionally, specific post-injection care instructions and a contact number to our office were provided if concerns arise regarding possible complications associated with the procedure are suspected.
== END 2024-09-02 14:33 | disposition home or self-care (01) ==
LOC: RAD 13:04
PROVIDERS: PCP Internal Medicine; Referring Provider Physical Medicine & Rehabilitation; Visit Provider Physical Medicine & Rehabilitation
DX: M51.16 Intervertebral disc disorders with radiculopathy, lumbar region (principal); M48.061 Spinal stenosis, lumbar region without neurogenic claudication
CPT/HCPCS: 62323; 99152; J0702; J1100; J2250; J3490